=== PATIENT | female | born 1945 | race Caucasian/White ===

== ENCOUNTER → 2017-01-01 | Outpatient (CLI) | payer OTHER | LOC: MMPC 10:00 | PROVIDERS: ATTEND Neurological Surgery | DX: R55 Syncope and collapse (principal); H53.9 Unspecified visual disturbance; R29.898 Other symptoms and signs involving the musculoskeletal system; M25.552 Pain in left hip; Z96.642 Presence of left artificial hip joint; I49.9 Cardiac arrhythmia, unspecified | CPT/HCPCS: 99204; G0463 ==

== ENCOUNTER → 2017-02-25 | Outpatient (CLI) | payer OTHER ==
--- NOTE | 2017-02-25 13:36 | DI ---
MRI PELVIS W/O CN,02/25/2017 9:59 AM: Clinical History: Left hip weakness. Previous Exam: MRI lumbar spine performed March 05, 2015 Findings: Multiplanar MR images are obtained through the pelvis without contrast. Patient is status post left total hip arthroplasty. The urinary bladder is unremarkable. There is mild atrophy of the psoas muscles bilaterally, but this is much worse on the left. The iliop soas muscle and tendon still descends normally with normal course and a normal insertion on the lesse r trochanter. There is some distorted signal in the region of a left total hip arthroplasty. Kidneys are normal. There is also some increased T2 signal within the subcutaneous fat of the left perineal area. There are degenerative changes noted at the L2/3 level where there is disc desiccation and a broad-ba sed disc bulge contributing to mild bilateral neural foraminal narrowing. 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 There is also some slightly asymmetric atrophy of the l eft iliacus muscle. The tendon appears to be intact however throughout its course. This most likely r epresents degeneration of the psoas muscle and to a lesser degree, the iliacus.
== END ==
LOC: MRI 09:56
PROVIDERS: ATTEND Physician Assistant
DX: M62.152 Other rupture of muscle (nontraumatic), left thigh (principal); M62.81 Muscle weakness (generalized); N81.84 Pelvic muscle wasting; M51.16 Intervertebral disc disorders with radiculopathy, lumbar region
CPT/HCPCS: 72195